=== PATIENT | female | born 1960 | race Caucasian/White ===

== ENCOUNTER 2018-02-12 16:43 | Emergency (ER) | payer BC ==
--- NOTE | 2018-02-12 16:48 | ER Report ---
History and Physical Time Seen By MD: 17:05 HPI/ROS CHIEF COMPLAINT: Rabies exposure HISTORY OF PRESENT ILLNESS: Patient is a 57-year-old female here due to exposure from a rabid skunk on Sunday. The skunk was analyzed and the patient was advised to come in for rabies vaccination. Since this is considered and a 0 , patient was given immunoglobulin as well as vaccination. Initial exposure was presumed to be on the patient's arms bilaterally. Patient reports that he was attempting to separate his puppy from the skunk and that saliva may have been exposed to his cuts on his arms from the puppy scratching. Patient is well appearing at time of evaluation, denies fevers, chills, chest pain, shortness breath, nausea, vomiting. She received both medications and is scheduled to come back in 3 days for the 2nd of 4 injections of vaccination. Tetanus to be updated today. Allergies: Coded Allergies: fluticasone (Verified Allergy, Intermediate, 02/12/18) hives Home Meds Reported Medications Levothyroxine Sodium (LEVOTHYROXINE SODIUM) 100 Mcg Tablet, 100 MCG PO QDAY, TAB 02/12/18 Constitutional Vital Sign - Last 24 Hours 02/12/18 16:55 Temp 97.8 Pulse 73 Resp 12 B/P (MAP) 123/74 Pulse Ox 94 O2 Delivery Room Air Physical Exam General appearance: Alert no distress. Extremities: No open wounds, NV exam intact DIFFERENTIAL DIAGNOSIS: After history and physical exam differential diagnosis was considered for rabies exposure, saliva exposure, tetanus exposure Medical Decision Making ED Course/Re-evaluation ED Course Patient is a 57-year-old female here due to exposure from a rabid skunk on Sunday. The skunk was analyzed and the patient was advised to come in for rabies vaccination. Since this is considered and a 0, patient was given immunoglobulin as well as vaccination. Initial exposure was presumed to be on the patient's arms bilaterally. Patient reports that he was attempting to separate his puppy from the skunk and that saliva may have been exposed to his cuts on his arms from the puppy scratching. Patient is well appearing at time of evaluation, denies fevers, chills, chest pain, shortness breath, nausea, vomiting. She received both medications and is scheduled to come back in 3 days for the 2nd of 4 injections of vaccination. Tetanus to be updated today. Decision to Disposition Date: February 12, 2018 Decision to Disposition Time: 17:54 Depart Departure Latest Vital Signs Vital Signs Date Time Temp Pulse Resp B/P (MAP) Pulse Ox O2 Delivery O2 Flow Rate FiO2 02/12/18 16:55 97.8 73 12 123/74 94 Room Air Impression: Primary Impression: Rabies exposure Condition: Condition Unchanged Disposition: HOME OR SELF-CARE Patient Instructions: Rabies Vaccine (ED) Additional Instructions: Please return at day 3, 7, 14 for your subsequent rabies vaccination course. You were given the 1st rabies vaccination today as well as the serum immunoglobulin and tetanus vaccination update. Please return promptly if you develop fevers, chills, chest pain, shortness of breath, nausea, vomiting, rashes. FABIEN AKERS DO February 12, 2018 16:48
[2018-02-12] MEDS ORDERED: LEVO-3 PO (16:59)
[2018-02-12] MEDS ORDERED: RABIES VAC(HUMAN) DIPL 2.5/KIT IM ONLY ONE (17:00)
[2018-02-12] MEDS ORDERED: RABIES IMM GLOB(HUMAN) 150U/ML IM ONLY PRN (17:00)
[2018-02-12] MEDS ORDERED: DIPHTH/TETANUS/ACEL. PERTUSSIS IM ONLY ONE (17:05)
[2018-02-12] MEDS ORDERED: RABIES IMM GLOB(HUMAN) 150U/ML IM ONLY ONE (17:20)
[2018-02-12 18:28] VITALS: BP 117/65
== END 2018-02-12 18:33 | disposition home or self-care (01) ==
LOC: ER 16:49
DX: Z20.3 Contact with and (suspected) exposure to rabies (principal)
CPT/HCPCS: 90376; 90471; 90472; 90675; 90715; 96372; 99284

== ENCOUNTER 2018-02-26 13:30 | Outpatient (RCR) | payer BC ==
[~2018-02-26 13:30] MED LIST: LEVO-3 PO; RABIES VAC(HUMAN) DIPL 2.5/KIT IM ONLY ONE
[2018-02-26 13:40] VITALS: BP 99/69
== END 2018-03-01 10:14 | disposition home or self-care (01) ==
LOC: SPU 13:30
PROVIDERS: ATTEND Student in an Organized Health Care Education/Training Program
DX: Z20.3 Contact with and (suspected) exposure to rabies (principal)
CPT/HCPCS: 90471; 90675